=== PATIENT | male | born 1960 | race Caucasian/White ===

== ENCOUNTER 2017-08-02 10:30 | Inpatient (IN) | payer MEDICAID ==
[2017-08-02] MEDS: SOD CHLORIDE 0.9% 1,000 ML IV ×2 (12:02)
[2017-08-02] MEDS: LORAZEPAM 2 MG INJ IV (12:02)
[2017-08-02 12:06] LABS: ADD MAN DIFF? NO
[2017-08-02 12:08] LABS: WHITE BLOOD COUNT 11.4 10^3/ul (4.8-10.8)
[2017-08-02 12:08] LABS: ABNORMAL IP MESSAGE 1; BASOPHIL # 0.1 10^3/ul (0.0-0.1); EOSINOPHILS # 0.3 10^3/ul (0.0-0.5); EOSINOPHILS % 2.7 % (0.0-7.0); HEMATOCRIT 30.4 % (42.0-52.0); HEMOGLOBIN 10.3 g/dl (14.0-18.0); LYMPHOCYTES # 1.5 10^3/ul (0.8-2.9); LYMPHOCYTES % 12.9 % (15.0-51.0); MEAN CORPUSCULAR HEMOGLOBIN 37.2 pg (29.0-33.0); MEAN CORPUSCULAR HGB CONC 33.9 g/dl (32.0-37.0); MEAN CORPUSCULAR VOLUME 109.7 fl (82.0-101.0); MEAN PLATELET VOLUME 9.6 fl (7.4-10.4); MONOCYTE # 1.2 10^3/ul (0.3-0.9); MONOCYTES % 10.5 % (0.0-11.0); NEUTROPHIL # 8.3 10^3/ul (1.6-7.5); NEUTROPHILS % 72.3 % (39.0-77.0); PLATELET COUNT 71 10^3/UL (140-415); POSITIVE DIFF @See below; RED BLOOD COUNT 2.77 10^6/ul (4.70-6.10)
[2017-08-02] MEDS: MAGNESIUM SULFATE 2 GM, MULTIVITAMINS 10 ML, THIAMINE 100 MG, FOLIC ACID 1 MG in SOD CH... IV (12:23)
[2017-08-02 12:26] LABS: ALANINE AMINOTRANSFERASE 27 IU/L (13-69); ALBUMIN 3.3 g/dl (3.3-4.9); ALBUMIN/GLOBULIN RATIO 0.53; ALKALINE PHOSPHATASE 191 IU/L (42-121); AMYLASE 80 U/L (11-123); ANION GAP 15 (8-16); ASPARTATE AMINO TRANSFERASE 111 IU/L (15-46); BILIRUBIN,INDIRECT 2.2 mg/dl (0-1.1); BILIRUBIN,TOTAL 2.3 mg/dl (0.2-1.3); BLOOD UREA NITROGEN 3 mg/dl (7-20); CALCIUM 8.4 mg/dl (8.4-10.2); CARBON DIOXIDE 24 mmol/L (21-31); CHLORIDE 112 mmol/L (97-110); CREATININE 0.85 mg/dl (0.61-1.24); GLUCOSE 139 mg/dl (70-220); LIPASE 263 U/L (23-300); POTASSIUM 3.2 mmol/L (3.5-5.1); SODIUM 148 mmol/L (135-144); TOTAL PROTEIN 9.5 g/dl (6.1-8.1)
[2017-08-02 12:29] LABS: PROTIME 23.2 Sec (11.9-14.9); PT RATIO 1.8
[2017-08-02 12:30] LABS: PARTIAL THROMBOPLASTIN TIME 45.8 Sec (25.0-35.0)
[2017-08-02 12:32] LABS: D-DIMER 2594.24 ng/ml (<460)
[2017-08-02 12:37] LABS: B-TYPE NATRIURETIC PEPTIDE 72 PG/ML (0-125)
[2017-08-02 12:38] LABS: ADD UMIC NO; TROPONIN-I < 0.010 ng/ml (0.000-0.120); UR ASCORBIC ACID NEGATIVE (NEGATIVE); UR BILIRUBIN (Dip) 1+ mg/dL (NEGATIVE); UR BLOOD (Dip) NEGATIVE (NEGATIVE); UR CLARITY CLEAR (CLEAR); UR COLOR AMBER (YELLOW); UR GLUCOSE (Dip) NEGATIVE (NEGATIVE); UR KETONES (Dip) NEGATIVE (NEGATIVE); UR LEUKOCYTE ESTERASE (Dip) NEGATIVE Leu/ul (NEGATIVE); UR NITRITE (Dip) NEGATIVE (NEGATIVE); UR SPECIFIC GRAVITY (Dip) 1.013 (1.003-1.030); UR TOTAL PROTEIN (Dip) NEGATIVE (NEGATIVE); UR UROBILINOGEN (Dip) 2+ mg/dL (NEGATIVE)
[2017-08-02 12:48] LABS: LACTIC ACID 3.2 mmol/L (0.5-2.0)
[2017-08-02] MEDS ORDERED: LACTATED RINGER S IV (13:00)
[2017-08-02] MEDS: CEFEPIME 2GM/50 ML (PMX) 50 ML IVPB (13:27)
[2017-08-02] MEDS: SODIUM CHLORIDE 0.9% 1L BAG IV* (13:28)
[2017-08-02 13:51] LABS: LACTIC ACID 1.6 mmol/L (0.5-2.0)
[2017-08-02] MEDS: IOHEXOL 300MG/ML 150 ML BTL (14:19)
[2017-08-02] MEDS: SOD CHLORIDE 0.9% 100 ML (14:19)
[2017-08-02] MEDS: ALBUTEROL 0.5% (NEB) 2.5 MG/0.5 ML AMP NEB (14:22)
[2017-08-02] MEDS: IPRATROPIUM (NEB) 0.5 MG/2.5 ML AMP NEB (14:22)
[2017-08-02] MEDS: VANCOMYCIN 1 GM (PMX) 250 ML IVPB (14:25)
[2017-08-02] MEDS: FUROSEMIDE 40 MG INJ IV (14:25)
[2017-08-02] MEDS ORDERED: ONDANSETRON 4 MG INJ IV (14:30)
[2017-08-02] MEDS ORDERED: ACETAMINOPHEN 325 MG TAB PO (14:30)
[2017-08-02] MEDS ORDERED: NACL 0.9% 3 ML SYG IV (16:30)
[2017-08-02] MEDS: FOLIC ACID 1 MG TAB PO (17:50)
[2017-08-02] MEDS: predniSONE 20 MG TAB PO (17:51)
[2017-08-02] MEDS: THIAMINE 100 MG TAB PO (17:54)
[2017-08-02] MEDS: ALBUTEROL/IPRATROPIUM (NEB) 3 ML AMP HHN (19:05)
[2017-08-03] MEDS: ALBUTEROL/IPRATROPIUM (NEB) 3 ML AMP HHN ×4 (01:19→20:19)
[2017-08-03] MEDS: THIAMINE 100 MG TAB PO ×2 (08:17→19:18)
[2017-08-03] MEDS: predniSONE 20 MG TAB PO (08:17)
[2017-08-03] MEDS: FOLIC ACID 1 MG TAB PO (08:18)
[2017-08-03] MEDS: ENOXAPARIN 30 MG/0.3 ML SYG SC (08:19)
[2017-08-03 08:54] LABS: ADD MAN DIFF? NO
[2017-08-03 09:02] LABS: WHITE BLOOD COUNT 9.5 10^3/ul (4.8-10.8)
[2017-08-03 09:02] LABS: ABNORMAL IP MESSAGE 1; BASOPHIL # 0.1 10^3/ul (0.0-0.1); BASOPHILS % 0.5 % (0.0-2.0); HEMATOCRIT 28.8 % (42.0-52.0); HEMOGLOBIN 9.7 g/dl (14.0-18.0); LYMPHOCYTES # 0.7 10^3/ul (0.8-2.9); LYMPHOCYTES % 7.7 % (15.0-51.0); MEAN CORPUSCULAR HEMOGLOBIN 37.2 pg (29.0-33.0); MEAN CORPUSCULAR HGB CONC 33.7 g/dl (32.0-37.0); MEAN CORPUSCULAR VOLUME 110.3 fl (82.0-101.0); MONOCYTE # 0.8 10^3/ul (0.3-0.9); MONOCYTES % 8.1 % (0.0-11.0); NEUTROPHIL # 7.9 10^3/ul (1.6-7.5); NEUTROPHILS % 83.1 % (39.0-77.0); PLATELET COUNT 56 10^3/UL (140-415); POSITIVE DIFF @See below; RED BLOOD COUNT 2.61 10^6/ul (4.70-6.10); RED CELL DISTRIBUTION WIDTH 14.9 % (11.5-14.5)
[2017-08-03 09:18] LABS: HEMOGLOBIN A1C 5.3 % (0-5.9)
[2017-08-03 09:21] LABS: ALANINE AMINOTRANSFERASE 22 IU/L (13-69); ALBUMIN 3.1 g/dl (3.3-4.9); ALBUMIN/GLOBULIN RATIO 0.52; ALKALINE PHOSPHATASE 219 IU/L (42-121); ANION GAP 14 (8-16); ASPARTATE AMINO TRANSFERASE 91 IU/L (15-46); BILIRUBIN,INDIRECT 2.3 mg/dl (0-1.1); BILIRUBIN,TOTAL 2.3 mg/dl (0.2-1.3); BLOOD UREA NITROGEN 4 mg/dl (7-20); CALCIUM 8.5 mg/dl (8.4-10.2); CARBON DIOXIDE 23 mmol/L (21-31); CHLORIDE 109 mmol/L (97-110); CREATININE 0.64 mg/dl (0.61-1.24); GLUCOSE 131 mg/dl (70-220); POTASSIUM 3.6 mmol/L (3.5-5.1); SODIUM 142 mmol/L (135-144)
[2017-08-03 09:54] LABS: ADD MAN DIFF? NO
[2017-08-03 09:55] LABS: ABNORMAL IP MESSAGE 1; BASOPHIL # 0.1 10^3/ul (0.0-0.1); BASOPHILS % 0.5 % (0.0-2.0); HEMOGLOBIN 9.7 g/dl (14.0-18.0); LYMPHOCYTES # 0.5 10^3/ul (0.8-2.9); LYMPHOCYTES % 5.1 % (15.0-51.0); MEAN CORPUSCULAR HEMOGLOBIN 36.9 pg (29.0-33.0); MEAN CORPUSCULAR HGB CONC 33.4 g/dl (32.0-37.0); MEAN CORPUSCULAR VOLUME 110.3 fl (82.0-101.0); MEAN PLATELET VOLUME 9.5 fl (7.4-10.4); MONOCYTE # 0.8 10^3/ul (0.3-0.9); MONOCYTES % 7.8 % (0.0-11.0); NEUTROPHIL # 8.3 10^3/ul (1.6-7.5); PLATELET COUNT 59 10^3/UL (140-415); POSITIVE DIFF @See below; RED BLOOD COUNT 2.63 10^6/ul (4.70-6.10); RED CELL DISTRIBUTION WIDTH 14.8 % (11.5-14.5)
[2017-08-03 09:55] LABS: WHITE BLOOD COUNT 9.6 10^3/ul (4.8-10.8)
[2017-08-03 10:15] LABS: ALANINE AMINOTRANSFERASE 23 IU/L (13-69); ALBUMIN/GLOBULIN RATIO 0.51; ALKALINE PHOSPHATASE 216 IU/L (42-121); ANION GAP 13 (8-16); ASPARTATE AMINO TRANSFERASE 91 IU/L (15-46); BILIRUBIN,INDIRECT 2.5 mg/dl (0-1.1); BILIRUBIN,TOTAL 2.5 mg/dl (0.2-1.3); BLOOD UREA NITROGEN 4 mg/dl (7-20); CALCIUM 8.6 mg/dl (8.4-10.2); CARBON DIOXIDE 24 mmol/L (21-31); CHLORIDE 109 mmol/L (97-110); CREATININE 0.63 mg/dl (0.61-1.24); GLUCOSE 134 mg/dl (70-220); POTASSIUM 3.7 mmol/L (3.5-5.1); SODIUM 142 mmol/L (135-144); TOTAL PROTEIN 8.8 g/dl (6.1-8.1)
[2017-08-03 10:16] LABS: INR 1.93; PROTIME 22.5 Sec (11.9-14.9); PT RATIO 1.8
[2017-08-03] MEDS ORDERED: CHLORDIAZEPOXIDE 25 MG CAP PO (15:00)
[2017-08-04] MEDS: ALBUTEROL/IPRATROPIUM (NEB) 3 ML AMP HHN ×2 (01:39→07:27)
[2017-08-04] MEDS: FOLIC ACID 1 MG TAB PO (08:43)
[2017-08-04] MEDS: predniSONE 20 MG TAB PO (08:43)
[2017-08-04] MEDS: THIAMINE 100 MG TAB PO (08:43)
[2017-08-04] MEDS: ENOXAPARIN 30 MG/0.3 ML SYG SC (08:44)
[2017-08-04 10:06] LABS: HEPATITIS B SURFACE ANTIGEN NEGATIVE (NEGATIVE)
[2017-08-04 10:22] LABS: HEPATITIS B SURFACE ANTIBODY POSITIVE (NEGATIVE)
[2017-08-04 10:23] LABS: HEPATITIS B CORE ANTIBODY NEGATIVE (NEGATIVE); HEPATITIS C VIRAL ANTIBODY NEGATIVE (NEGATIVE)
== END 2017-08-04 12:47 | disposition home or self-care (01) | DRG 433 ==
LOC: E/R 10:30 → MS4 14:26
DX: K70.30 Alcoholic cirrhosis of liver without ascites (principal); D68.9 Coagulation defect, unspecified; D69.6 Thrombocytopenia, unspecified; D53.9 Nutritional anemia, unspecified; R16.1 Splenomegaly, not elsewhere classified; F10.229 Alcohol dependence with intoxication, unspecified; F17.290 Nicotine dependence, other tobacco product, uncomplicated
CPT/HCPCS: 36415; 71045; 71275; 76705; 80053; 80307; 81003; 82150; 83036; 83605; 83690; 83880; 84484; 85025; 85378; 85610; 85730; 86704; 86706; 86708; 86803; 87040; 87086; 87340; 93005; 93306; 94640; 94644; 94664; 96365; 96366; 96368; 96375; 99291-25

== ENCOUNTER 2017-10-25 14:40 | Inpatient (IN) | payer MEDICAID ==
[2017-10-25 15:23] LABS: WHITE BLOOD COUNT 20.3 10^3/ul (4.8-10.8)
[2017-10-25 15:23] LABS: ABNORMAL IP MESSAGE 1; HEMATOCRIT 21.7 % (42.0-52.0); HEMOGLOBIN 7.4 g/dl (14.0-18.0); MEAN CORPUSCULAR HEMOGLOBIN 37.9 pg (29.0-33.0); MEAN CORPUSCULAR HGB CONC 34.1 g/dl (32.0-37.0); MEAN CORPUSCULAR VOLUME 111.3 fl (82.0-101.0); MEAN PLATELET VOLUME 10.6 fl (7.4-10.4); PLATELET COUNT 65 10^3/UL (140-415); POSITIVE DIFF @See below; RED BLOOD COUNT 1.95 10^6/ul (4.70-6.10); RED CELL DISTRIBUTION WIDTH 15.6 % (11.5-14.5)
[2017-10-25] MEDS: PANTOPRAZOLE IV 80 MG in SOD CHLORIDE 0.9% 100 ML IVPB (15:24)
[2017-10-25 15:29] LABS: ADD MAN DIFF? YES
[2017-10-25 15:34] LABS: OCCULT BLOOD STOOL NEGATIVE (NEGATIVE)
[2017-10-25 15:54] LABS: ALANINE AMINOTRANSFERASE 22 IU/L (13-69); ALBUMIN 2.7 g/dl (3.3-4.9); ALBUMIN/GLOBULIN RATIO 0.49; ALKALINE PHOSPHATASE 161 IU/L (42-121); ANION GAP 19 (8-16); ASPARTATE AMINO TRANSFERASE 163 IU/L (15-46); BILIRUBIN,INDIRECT 4.9 mg/dl (0-1.1); BLOOD UREA NITROGEN 3 mg/dl (7-20); CALCIUM 7.7 mg/dl (8.4-10.2); CARBON DIOXIDE 23 mmol/L (21-31); CHLORIDE 107 mmol/L (97-110); CREATININE 0.99 mg/dl (0.61-1.24); GLUCOSE 123 mg/dl (70-220); POTASSIUM 4.1 mmol/L (3.5-5.1); SODIUM 145 mmol/L (135-144); TOTAL PROTEIN 8.2 g/dl (6.1-8.1)
[2017-10-25 15:57] LABS: INR 2.86; PROTIME 30.8 Sec (11.9-14.9); PT RATIO 2.4
[2017-10-25 16:05] LABS: TROPONIN-I < 0.012 ng/ml (0.000-0.120)
[2017-10-25] MEDS ORDERED: ONDANSETRON 4 MG INJ IV (17:00)
[2017-10-25] MEDS: ALBUMIN HUMAN 25% 100 ML IV (17:04)
[2017-10-25] MEDS: OCTREOTIDE 50 MCG INJ SC (17:15)
[2017-10-25] MEDS: CEFEPIME 1GM/50 ML (PMX) 50 ML IVPB (17:15)
[2017-10-25 17:20] LABS: LACTIC ACID 3.6 mmol/L (0.5-2.0)
[2017-10-25] MEDS: metroNIDAZOLE 500 MG/NS (PMX) 100 ML IVPB (17:53)
[2017-10-25] MEDS: IOHEXOL 300MG/ML 150 ML BTL (18:02)
[2017-10-25] MEDS: SOD CHLORIDE 0.9% 100 ML (18:02)
[2017-10-25 19:29] LABS: HEMATOCRIT 18.9 % (42.0-52.0)
[2017-10-25 19:40] LABS: HEMOGLOBIN 6.3 g/dl (14.0-18.0)
[2017-10-25] MEDS: OCTREOTIDE 500 MCG in SOD CHLORIDE 0.9% 49 ML IV (19:48)
[2017-10-25] MEDS: PANTOPRAZOLE IV 80 MG in SOD CHLORIDE 0.9% 100 ML IV (19:48)
[2017-10-25 20:17] LABS: LACTIC ACID 3.5 mmol/L (0.5-2.0)
[2017-10-25 22:19] LABS: LACTIC ACID 3.5 mmol/L (0.5-2.0)
[2017-10-25 23:00] LABS: TYPE AND SCREEN 1
[2017-10-26 02:52] LABS: LACTIC ACID 4.6 mmol/L (0.5-2.0)
[2017-10-26] MEDS: CEFTRIAXONE 1 GM/50 ML (PMX) 50 ML IVPB ×2 (04:19→18:53)
[2017-10-26] MEDS: SOD CHLORIDE 0.9% 1,000 ML IV (04:54)
[2017-10-26] MEDS: SOD CHLORIDE 0.9% 250 ML IV (07:33)
[2017-10-26] MEDS ORDERED: metroNIDAZOLE (5 MG/ML) IV SYG IV* (08:30)
[2017-10-26] MEDS: Metronidazole 500 MG in NS 100 ML IVPB ×3 (09:43→21:27)
[2017-10-26 10:11] LABS: ADD MAN DIFF? NO
[2017-10-26 10:15] LABS: ABNORMAL IP MESSAGE 1; BASOPHIL # 0.1 10^3/ul (0.0-0.1); BASOPHILS % 0.4 % (0.0-2.0); EOSINOPHILS # 0.1 10^3/ul (0.0-0.5); EOSINOPHILS % 0.7 % (0.0-7.0); HEMATOCRIT 17.7 % (42.0-52.0); LYMPHOCYTES # 1.1 10^3/ul (0.8-2.9); LYMPHOCYTES % 8.1 % (15.0-51.0); MEAN CORPUSCULAR HEMOGLOBIN 35.6 pg (29.0-33.0); MEAN CORPUSCULAR HGB CONC 32.8 g/dl (32.0-37.0); MEAN CORPUSCULAR VOLUME 108.6 fl (82.0-101.0); MONOCYTE # 1.4 10^3/ul (0.3-0.9); MONOCYTES % 10.7 % (0.0-11.0); NEUTROPHIL # 10.7 10^3/ul (1.6-7.5); NEUTROPHILS % 79.4 % (39.0-77.0); PLATELET COUNT 52 10^3/UL (140-415); POSITIVE DIFF @See below; RED BLOOD COUNT 1.63 10^6/ul (4.70-6.10); RED CELL DISTRIBUTION WIDTH 22.8 % (11.5-14.5)
[2017-10-26 10:15] LABS: WHITE BLOOD COUNT 13.5 10^3/ul (4.8-10.8)
[2017-10-26] MEDS: ACETAMINOPHEN 325 MG TAB PO ×2 (10:17→10:55)
[2017-10-26 10:22] LABS: HEMOGLOBIN 5.8 g/dl (14.0-18.0)
[2017-10-26 10:37] LABS: INR 2.67; PROTIME 29.2 Sec (11.9-14.9); PT RATIO 2.3
[2017-10-26 10:37] LABS: LACTIC ACID 3.9 mmol/L (0.5-2.0)
[2017-10-26 10:38] LABS: PARTIAL THROMBOPLASTIN TIME 49.1 Sec (25.0-35.0)
[2017-10-26 10:46] LABS: ALANINE AMINOTRANSFERASE 26 IU/L (13-69); ALBUMIN 2.4 g/dl (3.3-4.9); ALBUMIN/GLOBULIN RATIO 0.52; ALKALINE PHOSPHATASE 110 IU/L (42-121); ANION GAP 14 (8-16); ASPARTATE AMINO TRANSFERASE 151 IU/L (15-46); BILIRUBIN,INDIRECT 5.8 mg/dl (0-1.1); BILIRUBIN,TOTAL 8.1 mg/dl (0.2-1.3); BLOOD UREA NITROGEN 4 mg/dl (7-20); CALCIUM 7.6 mg/dl (8.4-10.2); CARBON DIOXIDE 26 mmol/L (21-31); CHLORIDE 105 mmol/L (97-110); CREATININE 0.95 mg/dl (0.61-1.24); GLUCOSE 122 mg/dl (70-220); MAGNESIUM 1.7 mg/dl (1.7-2.5); PHOSPHORUS 5.8 mg/dl (2.5-4.9); POTASSIUM 4.6 mmol/L (3.5-5.1); SODIUM 140 mmol/L (135-144)
[2017-10-26] MEDS: PHYTONADIONE 10 MG/ML INJ IM (15:11)
[2017-10-26] MEDS: morphine 2 MG INJ IV (15:21)
[2017-10-26] MEDS ORDERED: OCTREOTIDE 1 MG in DEXTROSE 5% 95 ML IV (15:30)
[2017-10-26 16:19] LABS: ABNORMAL IP MESSAGE 1; HEMATOCRIT 19.7 % (42.0-52.0); MEAN CORPUSCULAR HEMOGLOBIN 34.6 pg (29.0-33.0); MEAN CORPUSCULAR VOLUME 104.8 fl (82.0-101.0); MEAN PLATELET VOLUME 10.8 fl (7.4-10.4); NUCLEATED RED BLOOD CELLS% 0.1 /100WBC (0.0-0.0); PLATELET COUNT 57 10^3/UL (140-415); POSITIVE DIFF @See below; RED BLOOD COUNT 1.88 10^6/ul (4.70-6.10); RED CELL DISTRIBUTION WIDTH 22.9 % (11.5-14.5)
[2017-10-26 16:19] LABS: WHITE BLOOD COUNT 15.5 10^3/ul (4.8-10.8)
[2017-10-26 16:28] LABS: ADD MAN DIFF? YES; HEMOGLOBIN 6.5 g/dl (14.0-18.0)
[2017-10-26 16:51] LABS: LACTIC ACID 5.1 mmol/L (0.5-2.0)
[2017-10-26] MEDS: OCTREOTIDE 1 MG in DEXTROSE 5% 95 ML IV (16:56)
[2017-10-26 17:02] LABS: ANISOCYTOSIS 2+ (0-0); BAND NEUTROPHILS #M 0.9 10^3/ul (0.0-0.6); BAND NEUTROPHILS % (M) 6 % (0-4); BASOPHIL #M 0.6 10^3/ul (0.0-0.0); BASOPHILS % (M) 4 % (0-2); EOSINOPHILS % (M) 1 % (0-7); LYMPHOCYTES #M 0.9 10^3/ul (0.8-2.9); LYMPHOCYTES % (M) 6 % (15-51); MONOCYTE #M 0.1 10^3/ul (0.3-0.9); MONOCYTES % (M) 1 % (0-11); PLATELET ESTIMATE DECREASED; POLYCHROMASIA 2+ (0-0); PROMYELOCYTES #M 0.1 10^3/ul (0-0); PROMYELOCYTES % (M) 1 % (0-0); SEG NEUT #M 12.7 10^3/ul (1.6-7.5); SEGMENTED NEUTROPHILS (M) % 81 % (39-77); SMUDGE%M 12 % (0-0)
[2017-10-26] MEDS: IOHEXOL 300MG/ML 150 ML BTL (18:15)
[2017-10-26] MEDS: SOD CHLORIDE 0.9% 100 ML (18:15)
[2017-10-26] MEDS: PANTOPRAZOLE 40 MG INJ IV (18:52)
[2017-10-26 20:44] LABS: HEMATOCRIT 19.9 % (42.0-52.0)
[2017-10-26 20:48] LABS: HEMOGLOBIN 6.4 g/dl (14.0-18.0)
[2017-10-26 21:09] LABS: LACTIC ACID 9.9 mmol/L (0.5-2.0)
[2017-10-26] MEDS: ONDANSETRON 4 MG INJ IV (21:27)
[2017-10-26] MEDS: CHLORDIAZEPOXIDE 25 MG CAP PO (21:27)
[2017-10-26] MEDS: LORAZEPAM 2 MG INJ IV (21:28)
[2017-10-26 22:56] LABS: AADO2 Arterial 91.3 mmHg (7.0-24.0); Allen Test ACCEPTAB; Arterial Base Excess -4.8 mmol/L (-3.0-3); Arterial Blood Gas Oxygen Sat 94.7 mmHG (95.0-98.0); Arterial COHb 1.5 % (0.0-3.0); Arterial Fraction of Oxyhgb 92.9 % (93.0-99.0); Arterial HCO3 19.7 mmol/L (22.0-26.0); Arterial MetHb 0.4 % (0.0-1.5); Arterial Total Hemglobin 6.2 g/dl (12.0-18.0); Arterial pCO2 33.4 mmhg (35-45); MODE NASAL CANNULA; Site Right Radial
[2017-10-27 03:05] LABS: LACTIC ACID 5.7 mmol/L (0.5-2.0)
[2017-10-27 03:20] LABS: IMMEDIATE SPIN CROSSMATCH 1
[2017-10-27] MEDS: PANTOPRAZOLE 40 MG INJ IV ×2 (06:28→19:26)
[2017-10-27] MEDS: PHYTONADIONE 10 MG/ML INJ IM (06:29)
[2017-10-27] MEDS: Metronidazole 500 MG in NS 100 ML IVPB ×3 (06:29→21:49)
[2017-10-27] MEDS: CHLORDIAZEPOXIDE 25 MG CAP PO ×3 (09:00→20:51)
[2017-10-27] MEDS: SOD CHLORIDE 0.9% 1,000 ML IV ×3 (09:06→23:24)
[2017-10-27] MEDS: METHYLPREDNISOLONE 40 MG INJ IV (10:47)
[2017-10-27] MEDS: SOD CHLORIDE 0.9% 250 ML IV* ×2 (11:20→16:00)
[2017-10-27 11:41] LABS: ADD MAN DIFF? NO
[2017-10-27 11:42] LABS: ABNORMAL IP MESSAGE 1; BASOPHIL # 0.1 10^3/ul (0.0-0.1); BASOPHILS % 0.4 % (0.0-2.0); EOSINOPHILS # 0.1 10^3/ul (0.0-0.5); EOSINOPHILS % 0.6 % (0.0-7.0); HEMATOCRIT 19.7 % (42.0-52.0); LYMPHOCYTES # 0.9 10^3/ul (0.8-2.9); LYMPHOCYTES % 6.6 % (15.0-51.0); MEAN CORPUSCULAR HEMOGLOBIN 33.3 pg (29.0-33.0); MEAN CORPUSCULAR HGB CONC 33.5 g/dl (32.0-37.0); MEAN CORPUSCULAR VOLUME 99.5 fl (82.0-101.0); MEAN PLATELET VOLUME 11.2 fl (7.4-10.4); MONOCYTE # 1.7 10^3/ul (0.3-0.9); MONOCYTES % 12.2 % (0.0-11.0); NEUTROPHILS % 79.3 % (39.0-77.0); NUCLEATED RED BLOOD CELLS% 0.3 /100WBC (0.0-0.0); PLATELET COUNT 48 10^3/UL (140-415); POSITIVE DIFF @See below; RED BLOOD COUNT 1.98 10^6/ul (4.70-6.10); RED CELL DISTRIBUTION WIDTH 23.4 % (11.5-14.5)
[2017-10-27 11:42] LABS: WHITE BLOOD COUNT 13.9 10^3/ul (4.8-10.8)
[2017-10-27 11:46] LABS: HEMOGLOBIN 6.6 g/dl (14.0-18.0)
[2017-10-27 12:04] LABS: INR 2.37; PROTIME 26.5 Sec (11.9-14.9); PT RATIO 2.1
[2017-10-27 12:11] LABS: ALANINE AMINOTRANSFERASE 26 IU/L (13-69); ALBUMIN 2.4 g/dl (3.3-4.9); ALBUMIN/GLOBULIN RATIO 0.55; ALKALINE PHOSPHATASE 91 IU/L (42-121); ANION GAP 11 (8-16); ASPARTATE AMINO TRANSFERASE 99 IU/L (15-46); BILIRUBIN,INDIRECT 7.3 mg/dl (0-1.1); BILIRUBIN,TOTAL 9.2 mg/dl (0.2-1.3); CARBON DIOXIDE 28 mmol/L (21-31); CHLORIDE 103 mmol/L (97-110); GLUCOSE 121 mg/dl (70-220); MAGNESIUM 1.8 mg/dl (1.7-2.5); PHOSPHORUS 4.2 mg/dl (2.5-4.9); POTASSIUM 4.3 mmol/L (3.5-5.1); SODIUM 138 mmol/L (135-144); TOTAL PROTEIN 6.7 g/dl (6.1-8.1)
[2017-10-27 12:49] LABS: BLOOD UREA NITROGEN 8 mg/dl (7-20); CALCIUM 8.1 mg/dl (8.4-10.2); CREATININE 0.99 mg/dl (0.61-1.24)
[2017-10-27] MEDS: OCTREOTIDE 1 MG in DEXTROSE 5% 95 ML IV (12:53)
[2017-10-27 13:45] LABS: IMMEDIATE SPIN CROSSMATCH 1 8
[2017-10-27] MEDS: PROPOFOL 20 ML (19:00)
[2017-10-27] MEDS: CEFTRIAXONE 1 GM/50 ML (PMX) 50 ML IVPB (19:26)
[2017-10-27] MEDS: LIDOCAINE 2% (SDV) 5 ML INJ (21:00)
[2017-10-28] MEDS: Metronidazole 500 MG in NS 100 ML IVPB (05:49)
[2017-10-28] MEDS: PANTOPRAZOLE 40 MG INJ IV ×2 (05:49→17:43)
[2017-10-28] MEDS: morphine 2 MG INJ IV (06:27)
[2017-10-28 09:09] LABS: ADD MAN DIFF? NO
[2017-10-28] MEDS: METHYLPREDNISOLONE 40 MG INJ IV (09:11)
[2017-10-28] MEDS: OCTREOTIDE 1 MG in DEXTROSE 5% 95 ML IV (09:11)
[2017-10-28] MEDS: CHLORDIAZEPOXIDE 25 MG CAP PO ×4 (09:13→20:41)
[2017-10-28 09:14] LABS: ABNORMAL IP MESSAGE 1; BASOPHILS % 0.1 % (0.0-2.0); EOSINOPHILS % 0.1 % (0.0-7.0); HEMATOCRIT 19.2 % (42.0-52.0); LYMPHOCYTES # 0.7 10^3/ul (0.8-2.9); LYMPHOCYTES % 5.4 % (15.0-51.0); MEAN CORPUSCULAR HEMOGLOBIN 32.5 pg (29.0-33.0); MEAN CORPUSCULAR HGB CONC 33.9 g/dl (32.0-37.0); MEAN PLATELET VOLUME 11.1 fl (7.4-10.4); MONOCYTE # 1.3 10^3/ul (0.3-0.9); MONOCYTES % 9.9 % (0.0-11.0); NEUTROPHIL # 11.2 10^3/ul (1.6-7.5); NEUTROPHILS % 83.4 % (39.0-77.0); NUCLEATED RED BLOOD CELLS # 0.1 10^3/ul (0.0-0.0); NUCLEATED RED BLOOD CELLS% 0.4 /100WBC (0.0-0.0); POSITIVE DIFF @See below; RED CELL DISTRIBUTION WIDTH 22.2 % (11.5-14.5)
[2017-10-28 09:14] LABS: WHITE BLOOD COUNT 13.5 10^3/ul (4.8-10.8)
[2017-10-28 09:21] LABS: PLATELET COUNT 40 10^3/UL (140-415)
[2017-10-28 09:27] LABS: HEMOGLOBIN 6.5 g/dl (14.0-18.0)
[2017-10-28 09:46] LABS: ALANINE AMINOTRANSFERASE 19 IU/L (13-69); ALBUMIN 2.2 g/dl (3.3-4.9); ALBUMIN/GLOBULIN RATIO 0.57; ALKALINE PHOSPHATASE 79 IU/L (42-121); ANION GAP 7 (8-16); ASPARTATE AMINO TRANSFERASE 81 IU/L (15-46); BILIRUBIN,INDIRECT 6.8 mg/dl (0-1.1); BILIRUBIN,TOTAL 9.8 mg/dl (0.2-1.3); BLOOD UREA NITROGEN 10 mg/dl (7-20); CALCIUM 7.9 mg/dl (8.4-10.2); CARBON DIOXIDE 28 mmol/L (21-31); CHLORIDE 105 mmol/L (97-110); CREATININE 0.91 mg/dl (0.61-1.24); GLUCOSE 113 mg/dl (70-220); MAGNESIUM 1.7 mg/dl (1.7-2.5); PHOSPHORUS 3.5 mg/dl (2.5-4.9); POTASSIUM 4.3 mmol/L (3.5-5.1); SODIUM 136 mmol/L (135-144)
[2017-10-28] MEDS: IODIXANOL LOCM 100 ML BTL (18:52)
[2017-10-28] MEDS: SOD CHLORIDE 0.9% 100 ML (18:52)
[2017-10-28 19:11] LABS: ADD MAN DIFF? NO
[2017-10-28 19:13] LABS: WHITE BLOOD COUNT 13.7 10^3/ul (4.8-10.8)
[2017-10-28 19:13] LABS: ABNORMAL IP MESSAGE 1; BASOPHILS % 0.2 % (0.0-2.0); HEMATOCRIT 23.7 % (42.0-52.0); LYMPHOCYTES # 0.6 10^3/ul (0.8-2.9); LYMPHOCYTES % 4.7 % (15.0-51.0); MEAN CORPUSCULAR HEMOGLOBIN 31.9 pg (29.0-33.0); MEAN CORPUSCULAR HGB CONC 33.8 g/dl (32.0-37.0); MEAN CORPUSCULAR VOLUME 94.4 fl (82.0-101.0); MEAN PLATELET VOLUME 10.9 fl (7.4-10.4); MONOCYTE # 1.1 10^3/ul (0.3-0.9); MONOCYTES % 7.7 % (0.0-11.0); NEUTROPHIL # 11.7 10^3/ul (1.6-7.5); NEUTROPHILS % 85.5 % (39.0-77.0); NUCLEATED RED BLOOD CELLS # 0.1 10^3/ul (0.0-0.0); NUCLEATED RED BLOOD CELLS% 0.7 /100WBC (0.0-0.0); PLATELET COUNT 43 10^3/UL (140-415); POSITIVE DIFF @See below; RED BLOOD COUNT 2.51 10^6/ul (4.70-6.10); RED CELL DISTRIBUTION WIDTH 20.5 % (11.5-14.5)
[2017-10-28] MEDS: CEFTRIAXONE 1 GM/50 ML (PMX) 50 ML IVPB (19:34)
[2017-10-28 21:51] LABS: IMMEDIATE SPIN CROSSMATCH 1 6
[2017-10-29] MEDS: PANTOPRAZOLE 40 MG INJ IV ×2 (05:20→18:20)
[2017-10-29 05:40] LABS: ADD MAN DIFF? NO
[2017-10-29 05:42] LABS: ABNORMAL IP MESSAGE 1; BASOPHILS % 0.1 % (0.0-2.0); HEMATOCRIT 18.8 % (42.0-52.0); LYMPHOCYTES # 0.9 10^3/ul (0.8-2.9); LYMPHOCYTES % 6.2 % (15.0-51.0); MEAN CORPUSCULAR HEMOGLOBIN 32.2 pg (29.0-33.0); MEAN CORPUSCULAR VOLUME 94.5 fl (82.0-101.0); MEAN PLATELET VOLUME 11.6 fl (7.4-10.4); MONOCYTE # 1.4 10^3/ul (0.3-0.9); NEUTROPHIL # 11.6 10^3/ul (1.6-7.5); NEUTROPHILS % 81.9 % (39.0-77.0); NUCLEATED RED BLOOD CELLS # 0.1 10^3/ul (0.0-0.0); PLATELET COUNT 44 10^3/UL (140-415); POSITIVE DIFF @See below; RED BLOOD COUNT 1.99 10^6/ul (4.70-6.10); RED CELL DISTRIBUTION WIDTH 21.6 % (11.5-14.5)
[2017-10-29 05:42] LABS: WHITE BLOOD COUNT 14.1 10^3/ul (4.8-10.8)
[2017-10-29 05:48] LABS: HEMOGLOBIN 6.4 g/dl (14.0-18.0)
[2017-10-29 06:24] LABS: ANION GAP 10 (8-16)
[2017-10-29 06:26] LABS: BLOOD UREA NITROGEN 12 mg/dl (7-20); CALCIUM 7.9 mg/dl (8.4-10.2); CARBON DIOXIDE 28 mmol/L (21-31); CHLORIDE 101 mmol/L (97-110); CREATININE 0.81 mg/dl (0.61-1.24); GLUCOSE 122 mg/dl (70-220); MAGNESIUM 1.8 mg/dl (1.7-2.5); PHOSPHORUS 3.1 mg/dl (2.5-4.9); POTASSIUM 4.1 mmol/L (3.5-5.1); SODIUM 135 mmol/L (135-144)
[2017-10-29] MEDS: METHYLPREDNISOLONE 40 MG INJ IV (08:26)
[2017-10-29] MEDS: CHLORDIAZEPOXIDE 25 MG CAP PO ×2 (08:26→14:23)
[2017-10-29 09:51] LABS: INR 2.46; PROTIME 27.3 Sec (11.9-14.9); PT RATIO 2.1
[2017-10-29 09:52] LABS: PARTIAL THROMBOPLASTIN TIME 36.5 Sec (25.0-35.0)
[2017-10-29] MEDS: SOD CHLORIDE 0.9% 250 ML IV* (11:28)
[2017-10-29] MEDS: SOD CHLORIDE 0.9% 100 ML (17:06)
[2017-10-29] MEDS: IOHEXOL 100 ML (17:06)
[2017-10-29] MEDS: CEFTRIAXONE 1 GM/50 ML (PMX) 50 ML IVPB (18:21)
[2017-10-29] MEDS: ALBUMIN HUMAN 25% 100 ML IV (19:02)
[2017-10-29 22:56] LABS: TYPE AND SCREEN 1
[2017-10-30] MEDS: PANTOPRAZOLE 40 MG INJ IV ×2 (05:51→17:20)
[2017-10-30 06:14] LABS: ADD MAN DIFF? NO
[2017-10-30 06:24] LABS: ABNORMAL IP MESSAGE 1; BASOPHILS % 0.1 % (0.0-2.0); EOSINOPHILS % 0.1 % (0.0-7.0); HEMATOCRIT 18.7 % (42.0-52.0); LYMPHOCYTES % 5.9 % (15.0-51.0); MEAN CORPUSCULAR HEMOGLOBIN 33.2 pg (29.0-33.0); MEAN CORPUSCULAR HGB CONC 34.2 g/dl (32.0-37.0); MEAN CORPUSCULAR VOLUME 96.9 fl (82.0-101.0); MEAN PLATELET VOLUME 10.2 fl (7.4-10.4); MONOCYTE # 1.6 10^3/ul (0.3-0.9); MONOCYTES % 9.4 % (0.0-11.0); NEUTROPHIL # 13.8 10^3/ul (1.6-7.5); NEUTROPHILS % 81.9 % (39.0-77.0); NUCLEATED RED BLOOD CELLS # 0.2 10^3/ul (0.0-0.0); NUCLEATED RED BLOOD CELLS% 1.4 /100WBC (0.0-0.0); PLATELET COUNT 71 10^3/UL (140-415); POSITIVE DIFF @See below; RED BLOOD COUNT 1.93 10^6/ul (4.70-6.10); RED CELL DISTRIBUTION WIDTH 20.4 % (11.5-14.5)
[2017-10-30 06:24] LABS: WHITE BLOOD COUNT 16.8 10^3/ul (4.8-10.8)
[2017-10-30 06:38] LABS: INR 2.58; PROTIME 28.4 Sec (11.9-14.9); PT RATIO 2.2
[2017-10-30 06:39] LABS: PARTIAL THROMBOPLASTIN TIME 39.8 Sec (25.0-35.0)
[2017-10-30 06:44] LABS: PHOSPHORUS 2.7 mg/dl (2.5-4.9)
[2017-10-30 06:44] LABS: MAGNESIUM 1.8 mg/dl (1.7-2.5)
[2017-10-30 06:59] LABS: ALBUMIN/GLOBULIN RATIO 0.68; ANION GAP 8 (8-16); BILIRUBIN,TOTAL 9.4 mg/dl (0.2-1.3)
[2017-10-30 07:05] LABS: ALANINE AMINOTRANSFERASE 26 IU/L (13-69); ALBUMIN 2.4 g/dl (3.3-4.9); ALKALINE PHOSPHATASE 85 IU/L (42-121); ASPARTATE AMINO TRANSFERASE 80 IU/L (15-46); BILIRUBIN,INDIRECT 6.8 mg/dl (0-1.1); BLOOD UREA NITROGEN 16 mg/dl (7-20); CALCIUM 8.2 mg/dl (8.4-10.2); CARBON DIOXIDE 29 mmol/L (21-31); CHLORIDE 104 mmol/L (97-110); CREATININE 0.85 mg/dl (0.61-1.24); GLUCOSE 128 mg/dl (70-220); SODIUM 137 mmol/L (135-144); TOTAL PROTEIN 5.9 g/dl (6.1-8.1)
[2017-10-30 07:15] LABS: HEMOGLOBIN 6.4 g/dl (14.0-18.0)
[2017-10-30] MEDS: METHYLPREDNISOLONE 40 MG INJ IV (09:15)
[2017-10-30 10:04] LABS: IMMEDIATE SPIN CROSSMATCH 1
[2017-10-30] MEDS: SOD CHLORIDE 0.9% 250 ML IV* (10:15)
[2017-10-30] MEDS: LACTULOSE 30ML CUP PO ×2 (14:11→17:20)
[2017-10-30 15:38] LABS: ADD MAN DIFF? NO
[2017-10-30 15:42] LABS: ABNORMAL IP MESSAGE 1; BASOPHILS % 0.1 % (0.0-2.0); EOSINOPHILS % 0.1 % (0.0-7.0); HEMOGLOBIN 7.3 g/dl (14.0-18.0); LYMPHOCYTES # 0.9 10^3/ul (0.8-2.9); LYMPHOCYTES % 5.4 % (15.0-51.0); MEAN CORPUSCULAR HEMOGLOBIN 32.4 pg (29.0-33.0); MEAN CORPUSCULAR HGB CONC 33.2 g/dl (32.0-37.0); MEAN CORPUSCULAR VOLUME 97.8 fl (82.0-101.0); MEAN PLATELET VOLUME 9.9 fl (7.4-10.4); MONOCYTE # 1.3 10^3/ul (0.3-0.9); MONOCYTES % 8.1 % (0.0-11.0); NEUTROPHIL # 13.7 10^3/ul (1.6-7.5); NEUTROPHILS % 83.4 % (39.0-77.0); NUCLEATED RED BLOOD CELLS # 0.2 10^3/ul (0.0-0.0); NUCLEATED RED BLOOD CELLS% 1.2 /100WBC (0.0-0.0); PLATELET COUNT 71 10^3/UL (140-415); POSITIVE DIFF @See below; RED BLOOD COUNT 2.25 10^6/ul (4.70-6.10); RED CELL DISTRIBUTION WIDTH 20.3 % (11.5-14.5)
[2017-10-30 15:42] LABS: WHITE BLOOD COUNT 16.4 10^3/ul (4.8-10.8)
[2017-10-30] MEDS: PHYTONADIONE 10 MG/ML INJ SC (18:37)
[2017-10-30] MEDS: CEFTRIAXONE 1 GM/50 ML (PMX) 50 ML IVPB (18:37)
[2017-10-31] MEDS: LACTULOSE 30ML CUP PO ×5 (00:09→23:24)
[2017-10-31] MEDS: PANTOPRAZOLE 40 MG INJ IV ×2 (05:14→18:20)
[2017-10-31 05:29] LABS: WHITE BLOOD COUNT 19.4 10^3/ul (4.8-10.8)
[2017-10-31 05:29] LABS: ABNORMAL IP MESSAGE 1; ADD MAN DIFF? NO; BASOPHILS % 0.2 % (0.0-2.0); EOSINOPHILS % 0.2 % (0.0-7.0); HEMATOCRIT 19.8 % (42.0-52.0); LYMPHOCYTES % 5.2 % (15.0-51.0); MEAN CORPUSCULAR HGB CONC 33.3 g/dl (32.0-37.0); MEAN PLATELET VOLUME 10.2 fl (7.4-10.4); MONOCYTE # 2.4 10^3/ul (0.3-0.9); MONOCYTES % 12.4 % (0.0-11.0); NEUTROPHIL # 15.4 10^3/ul (1.6-7.5); NEUTROPHILS % 79.3 % (39.0-77.0); NUCLEATED RED BLOOD CELLS # 0.2 10^3/ul (0.0-0.0); NUCLEATED RED BLOOD CELLS% 1.2 /100WBC (0.0-0.0); PLATELET COUNT 71 10^3/UL (140-415); POSITIVE DIFF @See below; RED CELL DISTRIBUTION WIDTH 21.6 % (11.5-14.5)
[2017-10-31 05:46] LABS: HEMOGLOBIN 6.6 g/dl (14.0-18.0)
[2017-10-31 06:04] LABS: PHOSPHORUS 2.9 mg/dl (2.5-4.9)
[2017-10-31 06:04] LABS: MAGNESIUM 1.9 mg/dl (1.7-2.5)
[2017-10-31 06:10] LABS: ALANINE AMINOTRANSFERASE 25 IU/L (13-69); ALBUMIN 2.5 g/dl (3.3-4.9); ALBUMIN/GLOBULIN RATIO 0.64; ALKALINE PHOSPHATASE 100 IU/L (42-121); ANION GAP 9 (8-16); ASPARTATE AMINO TRANSFERASE 93 IU/L (15-46); BILIRUBIN,INDIRECT 7.4 mg/dl (0-1.1); BILIRUBIN,TOTAL 12.1 mg/dl (0.2-1.3); BLOOD UREA NITROGEN 19 mg/dl (7-20); CALCIUM 8.4 mg/dl (8.4-10.2); CARBON DIOXIDE 28 mmol/L (21-31); CHLORIDE 105 mmol/L (97-110); CREATININE 0.79 mg/dl (0.61-1.24); GLUCOSE 120 mg/dl (70-220); POTASSIUM 3.6 mmol/L (3.5-5.1); SODIUM 138 mmol/L (135-144); TOTAL PROTEIN 6.4 g/dl (6.1-8.1)
[2017-10-31] MEDS: METHYLPREDNISOLONE 40 MG INJ IV (08:53)
[2017-10-31 13:10] LABS: ADD MAN DIFF? NO
[2017-10-31 13:11] LABS: WHITE BLOOD COUNT 18.1 10^3/ul (4.8-10.8)
[2017-10-31 13:11] LABS: ABNORMAL IP MESSAGE 1; BASOPHILS % 0.2 % (0.0-2.0); EOSINOPHILS % 0.2 % (0.0-7.0); HEMATOCRIT 21.9 % (42.0-52.0); HEMOGLOBIN 7.3 g/dl (14.0-18.0); LYMPHOCYTES # 0.9 10^3/ul (0.8-2.9); LYMPHOCYTES % 4.9 % (15.0-51.0); MEAN CORPUSCULAR HEMOGLOBIN 32.7 pg (29.0-33.0); MEAN CORPUSCULAR HGB CONC 33.3 g/dl (32.0-37.0); MEAN CORPUSCULAR VOLUME 98.2 fl (82.0-101.0); MEAN PLATELET VOLUME 10.5 fl (7.4-10.4); MONOCYTE # 1.7 10^3/ul (0.3-0.9); MONOCYTES % 9.2 % (0.0-11.0); NEUTROPHIL # 14.9 10^3/ul (1.6-7.5); NEUTROPHILS % 82.1 % (39.0-77.0); NUCLEATED RED BLOOD CELLS # 0.2 10^3/ul (0.0-0.0); NUCLEATED RED BLOOD CELLS% 0.9 /100WBC (0.0-0.0); PLATELET COUNT 77 10^3/UL (140-415); POSITIVE DIFF @See below; RED BLOOD COUNT 2.23 10^6/ul (4.70-6.10); RED CELL DISTRIBUTION WIDTH 22.5 % (11.5-14.5)
[2017-10-31] MEDS: CEFTRIAXONE 1 GM/50 ML (PMX) 50 ML IVPB (18:21)
[2017-11-01] MEDS: morphine LIQ (10 MG/5 ML) CUP PO ×2 (02:07→22:37)
[2017-11-01 05:47] LABS: WHITE BLOOD COUNT 16.6 10^3/ul (4.8-10.8)
[2017-11-01 05:47] LABS: ABNORMAL IP MESSAGE 1; ADD MAN DIFF? NO; BASOPHILS % 0.1 % (0.0-2.0); EOSINOPHILS % 0.2 % (0.0-7.0); HEMATOCRIT 20.4 % (42.0-52.0); LYMPHOCYTES % 5.9 % (15.0-51.0); MEAN CORPUSCULAR HEMOGLOBIN 32.5 pg (29.0-33.0); MEAN CORPUSCULAR HGB CONC 32.8 g/dl (32.0-37.0); MEAN PLATELET VOLUME 10.2 fl (7.4-10.4); MONOCYTES % 11.8 % (0.0-11.0); NEUTROPHIL # 13.1 10^3/ul (1.6-7.5); NEUTROPHILS % 79.1 % (39.0-77.0); NUCLEATED RED BLOOD CELLS # 0.1 10^3/ul (0.0-0.0); NUCLEATED RED BLOOD CELLS% 0.7 /100WBC (0.0-0.0); PLATELET COUNT 65 10^3/UL (140-415); POSITIVE DIFF @See below; RED BLOOD COUNT 2.06 10^6/ul (4.70-6.10); RED CELL DISTRIBUTION WIDTH 24.2 % (11.5-14.5)
[2017-11-01 06:07] LABS: HEMOGLOBIN 6.7 g/dl (14.0-18.0)
[2017-11-01 06:11] LABS: INR 2.83; PROTIME 30.6 Sec (11.9-14.9); PT RATIO 2.4
[2017-11-01 06:27] LABS: ALANINE AMINOTRANSFERASE 28 IU/L (13-69); ALBUMIN 2.4 g/dl (3.3-4.9); ALBUMIN/GLOBULIN RATIO 0.63; ALKALINE PHOSPHATASE 89 IU/L (42-121); ANION GAP 9 (8-16); ASPARTATE AMINO TRANSFERASE 77 IU/L (15-46); BILIRUBIN,INDIRECT 7.6 mg/dl (0-1.1); BLOOD UREA NITROGEN 18 mg/dl (7-20); CALCIUM 8.3 mg/dl (8.4-10.2); CARBON DIOXIDE 27 mmol/L (21-31); CHLORIDE 104 mmol/L (97-110); CREATININE 0.78 mg/dl (0.61-1.24); GLUCOSE 124 mg/dl (70-220); POTASSIUM 3.8 mmol/L (3.5-5.1); SODIUM 136 mmol/L (135-144); TOTAL PROTEIN 6.2 g/dl (6.1-8.1)
[2017-11-01] MEDS: LACTULOSE 30ML CUP PO ×3 (06:29→17:37)
[2017-11-01] MEDS: PANTOPRAZOLE 40 MG INJ IV ×2 (06:29→17:37)
[2017-11-01] MEDS: METHYLPREDNISOLONE 40 MG INJ IV (09:00)
[2017-11-01 12:24] LABS: HAAIG REFLEX REFLEX FILED
[2017-11-01 12:44] LABS: AMMONIA 48 umol/l (9-30)
[2017-11-01 13:18] LABS: HEPATITIS B SURFACE ANTIGEN NEGATIVE (NEGATIVE)
[2017-11-01 13:36] LABS: HEPATITIS B CORE ANTIBODY NEGATIVE (NEGATIVE); HEPATITIS C VIRAL ANTIBODY NEGATIVE (NEGATIVE)
[2017-11-01 13:52] LABS: ALPHA FETOPROTEIN 5.91 IU/L (0.00-7.21)
[2017-11-01 15:20] LABS: IMMEDIATE SPIN CROSSMATCH 1 1
[2017-11-01 17:51] LABS: IMMEDIATE SPIN CROSSMATCH 1
[2017-11-01] MEDS: SOD CHLORIDE 0.9% 250 ML IV* (17:53)
[2017-11-01] MEDS: CEFTRIAXONE 1 GM/50 ML (PMX) 50 ML IVPB (19:46)
[2017-11-02] MEDS: LACTULOSE 30ML CUP PO ×4 (00:13→17:38)
[2017-11-02 05:49] LABS: ADD MAN DIFF? NO
[2017-11-02 05:59] LABS: ABNORMAL IP MESSAGE 1; BASOPHILS % 0.1 % (0.0-2.0); EOSINOPHILS % 0.2 % (0.0-7.0); HEMATOCRIT 23.6 % (42.0-52.0); HEMOGLOBIN 7.7 g/dl (14.0-18.0); LYMPHOCYTES # 0.6 10^3/ul (0.8-2.9); MEAN CORPUSCULAR HEMOGLOBIN 31.6 pg (29.0-33.0); MEAN CORPUSCULAR HGB CONC 32.6 g/dl (32.0-37.0); MEAN CORPUSCULAR VOLUME 96.7 fl (82.0-101.0); MEAN PLATELET VOLUME 10.2 fl (7.4-10.4); MONOCYTE # 1.7 10^3/ul (0.3-0.9); MONOCYTES % 11.4 % (0.0-11.0); NEUTROPHIL # 12.5 10^3/ul (1.6-7.5); NEUTROPHILS % 82.2 % (39.0-77.0); NUCLEATED RED BLOOD CELLS # 0.1 10^3/ul (0.0-0.0); NUCLEATED RED BLOOD CELLS% 0.3 /100WBC (0.0-0.0); PLATELET COUNT 68 10^3/UL (140-415); POSITIVE DIFF @See below; RED BLOOD COUNT 2.44 10^6/ul (4.70-6.10); RED CELL DISTRIBUTION WIDTH 25.2 % (11.5-14.5)
[2017-11-02 05:59] LABS: WHITE BLOOD COUNT 15.2 10^3/ul (4.8-10.8)
[2017-11-02 06:16] LABS: ALANINE AMINOTRANSFERASE 41 IU/L (13-69); ALBUMIN 2.5 g/dl (3.3-4.9); ALKALINE PHOSPHATASE 97 IU/L (42-121); ASPARTATE AMINO TRANSFERASE 81 IU/L (15-46); BILIRUBIN,INDIRECT 8.7 mg/dl (0-1.1); BILIRUBIN,TOTAL 12.5 mg/dl (0.2-1.3)
[2017-11-02 06:18] LABS: INR 2.33; PROTIME 26.2 Sec (11.9-14.9); TOTAL PROTEIN 6.8 g/dl (6.1-8.1)
[2017-11-02] MEDS: PANTOPRAZOLE 40 MG INJ IV ×2 (06:38→17:38)
[2017-11-02] MEDS: METHYLPREDNISOLONE 40 MG INJ IV (08:04)
[2017-11-02] MEDS: MULTIVITAMINS 10 ML, THIAMINE 100 MG, FOLIC ACID 1 MG in SOD CHLORIDE 0.9% 1,000 ML IVPB (09:00)
[2017-11-02] MEDS: MULTIVITAMINS THERAPEUTIC TAB PO (12:52)
[2017-11-02] MEDS: THIAMINE 100 MG TAB PO (12:52)
[2017-11-02] MEDS: FOLIC ACID 1 MG TAB PO (12:52)
[2017-11-03] MEDS: LACTULOSE 30ML CUP PO ×4 (01:06→23:48)
[2017-11-03] MEDS: PANTOPRAZOLE 40 MG INJ IV ×2 (05:33→18:01)
[2017-11-03 05:54] LABS: ADD MAN DIFF? NO
[2017-11-03 06:03] LABS: WHITE BLOOD COUNT 12.7 10^3/ul (4.8-10.8)
[2017-11-03 06:03] LABS: ABNORMAL IP MESSAGE 1; BASOPHILS % 0.1 % (0.0-2.0); EOSINOPHILS # 0.1 10^3/ul (0.0-0.5); EOSINOPHILS % 0.6 % (0.0-7.0); HEMOGLOBIN 7.8 g/dl (14.0-18.0); LYMPHOCYTES # 0.7 10^3/ul (0.8-2.9); LYMPHOCYTES % 5.4 % (15.0-51.0); MEAN CORPUSCULAR HEMOGLOBIN 32.1 pg (29.0-33.0); MEAN CORPUSCULAR HGB CONC 32.5 g/dl (32.0-37.0); MEAN CORPUSCULAR VOLUME 98.8 fl (82.0-101.0); MEAN PLATELET VOLUME 10.5 fl (7.4-10.4); MONOCYTE # 1.6 10^3/ul (0.3-0.9); MONOCYTES % 12.7 % (0.0-11.0); NEUTROPHIL # 10.2 10^3/ul (1.6-7.5); NEUTROPHILS % 79.9 % (39.0-77.0); NUCLEATED RED BLOOD CELLS% 0.2 /100WBC (0.0-0.0); PLATELET COUNT 74 10^3/UL (140-415); POSITIVE DIFF @See below; RED BLOOD COUNT 2.43 10^6/ul (4.70-6.10); RED CELL DISTRIBUTION WIDTH 25.2 % (11.5-14.5)
[2017-11-03 06:26] LABS: ALANINE AMINOTRANSFERASE 34 IU/L (13-69); ALBUMIN 2.4 g/dl (3.3-4.9); ALKALINE PHOSPHATASE 103 IU/L (42-121); ASPARTATE AMINO TRANSFERASE 74 IU/L (15-46); BILIRUBIN,INDIRECT 8.5 mg/dl (0-1.1); BILIRUBIN,TOTAL 12.2 mg/dl (0.2-1.3); TOTAL PROTEIN 6.3 g/dl (6.1-8.1)
[2017-11-03 07:47] LABS: AMMONIA 61 umol/l (9-30)
[2017-11-03] MEDS: MULTIVITAMINS THERAPEUTIC TAB PO (08:54)
[2017-11-03] MEDS: METHYLPREDNISOLONE 40 MG INJ IV (08:54)
[2017-11-03] MEDS: THIAMINE 100 MG TAB PO (08:54)
[2017-11-03] MEDS: FOLIC ACID 1 MG TAB PO (08:54)
[2017-11-03] MEDS: LORAZEPAM 2 MG INJ IV (23:48)
[2017-11-04 06:16] LABS: ADD MAN DIFF? NO
[2017-11-04 06:23] LABS: WHITE BLOOD COUNT 14.9 10^3/ul (4.8-10.8)
[2017-11-04 06:23] LABS: ABNORMAL IP MESSAGE 1; BASOPHILS % 0.1 % (0.0-2.0); EOSINOPHILS # 0.1 10^3/ul (0.0-0.5); EOSINOPHILS % 0.5 % (0.0-7.0); LYMPHOCYTES # 0.7 10^3/ul (0.8-2.9); LYMPHOCYTES % 4.4 % (15.0-51.0); MEAN CORPUSCULAR HEMOGLOBIN 31.1 pg (29.0-33.0); MEAN CORPUSCULAR HGB CONC 30.8 g/dl (32.0-37.0); MEAN CORPUSCULAR VOLUME 101.2 fl (82.0-101.0); MEAN PLATELET VOLUME 9.6 fl (7.4-10.4); MONOCYTE # 1.9 10^3/ul (0.3-0.9); MONOCYTES % 12.6 % (0.0-11.0); NEUTROPHIL # 12.1 10^3/ul (1.6-7.5); NEUTROPHILS % 81.1 % (39.0-77.0); NUCLEATED RED BLOOD CELLS% 0.2 /100WBC (0.0-0.0); PLATELET COUNT 86 10^3/UL (140-415); POSITIVE DIFF @See below; RED BLOOD COUNT 2.57 10^6/ul (4.70-6.10); RED CELL DISTRIBUTION WIDTH 26.1 % (11.5-14.5)
[2017-11-04] MEDS: PANTOPRAZOLE 40 MG INJ IV ×2 (06:25→17:51)
[2017-11-04] MEDS: LACTULOSE 30ML CUP PO ×3 (06:25→17:52)
[2017-11-04 06:37] LABS: INR 2.51; PROTIME 27.8 Sec (11.9-14.9); PT RATIO 2.2
[2017-11-04 06:40] LABS: ALANINE AMINOTRANSFERASE 45 IU/L (13-69); ALBUMIN 2.6 g/dl (3.3-4.9); ALKALINE PHOSPHATASE 143 IU/L (42-121); ASPARTATE AMINO TRANSFERASE 86 IU/L (15-46); BILIRUBIN,INDIRECT 8.2 mg/dl (0-1.1); BILIRUBIN,TOTAL 13.9 mg/dl (0.2-1.3); TOTAL PROTEIN 6.7 g/dl (6.1-8.1)
[2017-11-04 06:40] LABS: AMMONIA 39 umol/l (9-30)
[2017-11-04] MEDS: THIAMINE 100 MG TAB PO (09:21)
[2017-11-04] MEDS: MULTIVITAMINS THERAPEUTIC TAB PO (09:21)
[2017-11-04] MEDS: FOLIC ACID 1 MG TAB PO (09:21)
[2017-11-04] MEDS: METHYLPREDNISOLONE 40 MG INJ IV (09:22)
[2017-11-05 05:49] LABS: ADD MAN DIFF? NO
[2017-11-05 05:52] LABS: ABNORMAL IP MESSAGE 1; BASOPHILS % 0.1 % (0.0-2.0); EOSINOPHILS # 0.1 10^3/ul (0.0-0.5); EOSINOPHILS % 0.4 % (0.0-7.0); HEMATOCRIT 26.1 % (42.0-52.0); HEMOGLOBIN 8.5 g/dl (14.0-18.0); LYMPHOCYTES # 0.6 10^3/ul (0.8-2.9); LYMPHOCYTES % 3.7 % (15.0-51.0); MEAN CORPUSCULAR HEMOGLOBIN 32.8 pg (29.0-33.0); MEAN CORPUSCULAR HGB CONC 32.6 g/dl (32.0-37.0); MEAN CORPUSCULAR VOLUME 100.8 fl (82.0-101.0); MEAN PLATELET VOLUME 9.5 fl (7.4-10.4); MONOCYTE # 1.9 10^3/ul (0.3-0.9); MONOCYTES % 11.9 % (0.0-11.0); NEUTROPHILS % 82.6 % (39.0-77.0); NUCLEATED RED BLOOD CELLS% 0.1 /100WBC (0.0-0.0); PLATELET COUNT 92 10^3/UL (140-415); POSITIVE DIFF @See below; RED BLOOD COUNT 2.59 10^6/ul (4.70-6.10); RED CELL DISTRIBUTION WIDTH 26.5 % (11.5-14.5)
[2017-11-05 05:52] LABS: WHITE BLOOD COUNT 15.8 10^3/ul (4.8-10.8)
[2017-11-05] MEDS: LACTULOSE 30ML CUP PO ×4 (06:00→17:55)
[2017-11-05] MEDS: PANTOPRAZOLE 40 MG INJ IV ×2 (06:03→17:55)
[2017-11-05 06:14] LABS: AMMONIA 49 umol/l (9-30)
[2017-11-05 06:45] LABS: ALANINE AMINOTRANSFERASE 50 IU/L (13-69); ALBUMIN 2.5 g/dl (3.3-4.9); ALBUMIN/GLOBULIN RATIO 0.52; ALKALINE PHOSPHATASE 133 IU/L (42-121); ANION GAP 11 (8-16); ASPARTATE AMINO TRANSFERASE 81 IU/L (15-46); BILIRUBIN,INDIRECT 8.8 mg/dl (0-1.1); BILIRUBIN,TOTAL 14.7 mg/dl (0.2-1.3); BLOOD UREA NITROGEN 12 mg/dl (7-20); CALCIUM 8.4 mg/dl (8.4-10.2); CARBON DIOXIDE 29 mmol/L (21-31); CHLORIDE 101 mmol/L (97-110); CREATININE 0.72 mg/dl (0.61-1.24); GLUCOSE 130 mg/dl (70-220); POTASSIUM 4.4 mmol/L (3.5-5.1); SODIUM 137 mmol/L (135-144); TOTAL PROTEIN 7.3 g/dl (6.1-8.1)
[2017-11-05] MEDS: MULTIVITAMINS THERAPEUTIC TAB PO (09:11)
[2017-11-05] MEDS: METHYLPREDNISOLONE 40 MG INJ IV (09:11)
[2017-11-05] MEDS: THIAMINE 100 MG TAB PO (09:11)
[2017-11-05] MEDS: FOLIC ACID 1 MG TAB PO (09:11)
[2017-11-05] MEDS: ONDANSETRON 4 MG INJ IV (09:12)
[2017-11-05] MEDS: FUROSEMIDE 20 MG TAB PO (09:12)
[2017-11-05] MEDS: PHYTONADIONE 10 MG/ML INJ SC (17:55)
[2017-11-05] MEDS: LORAZEPAM 2 MG INJ IV (23:43)
[2017-11-06 06:11] LABS: ADD MAN DIFF? NO
[2017-11-06] MEDS: PANTOPRAZOLE 40 MG INJ IV ×2 (06:11→17:30)
[2017-11-06] MEDS: LACTULOSE 30ML CUP PO ×4 (06:11→17:30)
[2017-11-06 06:21] LABS: WHITE BLOOD COUNT 17.9 10^3/ul (4.8-10.8)
[2017-11-06 06:21] LABS: ABNORMAL IP MESSAGE 1; BASOPHILS % 0.1 % (0.0-2.0); EOSINOPHILS # 0.1 10^3/ul (0.0-0.5); EOSINOPHILS % 0.4 % (0.0-7.0); HEMATOCRIT 26.6 % (42.0-52.0); HEMOGLOBIN 8.5 g/dl (14.0-18.0); LYMPHOCYTES # 0.7 10^3/ul (0.8-2.9); LYMPHOCYTES % 3.7 % (15.0-51.0); MEAN CORPUSCULAR HEMOGLOBIN 32.3 pg (29.0-33.0); MEAN CORPUSCULAR VOLUME 101.1 fl (82.0-101.0); MEAN PLATELET VOLUME 10.1 fl (7.4-10.4); MONOCYTES % 10.9 % (0.0-11.0); NEUTROPHILS % 83.6 % (39.0-77.0); NUCLEATED RED BLOOD CELLS% 0.1 /100WBC (0.0-0.0); PLATELET COUNT 107 10^3/UL (140-415); POSITIVE DIFF @See below; RED BLOOD COUNT 2.63 10^6/ul (4.70-6.10); RED CELL DISTRIBUTION WIDTH 26.6 % (11.5-14.5)
[2017-11-06 06:34] LABS: ANION GAP 10 (8-16); BLOOD UREA NITROGEN 15 mg/dl (7-20); CALCIUM 8.5 mg/dl (8.4-10.2); CARBON DIOXIDE 30 mmol/L (21-31); CHLORIDE 101 mmol/L (97-110); CREATININE 0.69 mg/dl (0.61-1.24); GLUCOSE 131 mg/dl (70-220); POTASSIUM 4.7 mmol/L (3.5-5.1); SODIUM 136 mmol/L (135-144)
[2017-11-06 06:38] LABS: INR 2.48; PROTIME 27.5 Sec (11.9-14.9); PT RATIO 2.1
[2017-11-06] MEDS: FOLIC ACID 1 MG TAB PO (08:33)
[2017-11-06] MEDS: MULTIVITAMINS THERAPEUTIC TAB PO (08:33)
[2017-11-06] MEDS: FUROSEMIDE 20 MG TAB PO (08:33)
[2017-11-06] MEDS: THIAMINE 100 MG TAB PO (08:33)
[2017-11-06] MEDS: METHYLPREDNISOLONE 40 MG INJ IV (08:33)
[2017-11-06] MEDS: RIFAXIMIN 550 MG TAB PO ×2 (15:41→22:08)
[2017-11-06] MEDS: morphine LIQ (10 MG/5 ML) CUP PO (17:47)
[2017-11-07] MEDS: LACTULOSE 30ML CUP PO ×4 (00:29→17:33)
[2017-11-07] MEDS: PANTOPRAZOLE 40 MG INJ IV ×2 (05:36→17:33)
[2017-11-07 06:03] LABS: ADD MAN DIFF? NO
[2017-11-07 06:19] LABS: WHITE BLOOD COUNT 19.2 10^3/ul (4.8-10.8)
[2017-11-07 06:19] LABS: ABNORMAL IP MESSAGE 1; BASOPHILS % 0.1 % (0.0-2.0); EOSINOPHILS # 0.1 10^3/ul (0.0-0.5); EOSINOPHILS % 0.7 % (0.0-7.0); HEMATOCRIT 26.8 % (42.0-52.0); HEMOGLOBIN 8.7 g/dl (14.0-18.0); LYMPHOCYTES # 0.7 10^3/ul (0.8-2.9); LYMPHOCYTES % 3.5 % (15.0-51.0); MEAN CORPUSCULAR HEMOGLOBIN 33.2 pg (29.0-33.0); MEAN CORPUSCULAR HGB CONC 32.5 g/dl (32.0-37.0); MEAN CORPUSCULAR VOLUME 102.3 fl (82.0-101.0); MEAN PLATELET VOLUME 9.5 fl (7.4-10.4); MONOCYTE # 2.1 10^3/ul (0.3-0.9); MONOCYTES % 10.7 % (0.0-11.0); NEUTROPHIL # 15.9 10^3/ul (1.6-7.5); NUCLEATED RED BLOOD CELLS% 0.2 /100WBC (0.0-0.0); PLATELET COUNT 107 10^3/UL (140-415); POSITIVE DIFF @See below; RED BLOOD COUNT 2.62 10^6/ul (4.70-6.10)
[2017-11-07 06:33] LABS: ANION GAP 9 (8-16); BLOOD UREA NITROGEN 15 mg/dl (7-20); CALCIUM 8.5 mg/dl (8.4-10.2); CARBON DIOXIDE 32 mmol/L (21-31); CHLORIDE 99 mmol/L (97-110); CREATININE 0.69 mg/dl (0.61-1.24); GLUCOSE 133 mg/dl (70-220); POTASSIUM 4.7 mmol/L (3.5-5.1); SODIUM 135 mmol/L (135-144)
[2017-11-07 06:39] LABS: AMMONIA 57 umol/l (9-30)
[2017-11-07] MEDS: FUROSEMIDE 20 MG TAB PO (08:04)
[2017-11-07] MEDS: MULTIVITAMINS THERAPEUTIC TAB PO (08:04)
[2017-11-07] MEDS: METHYLPREDNISOLONE 40 MG INJ IV (08:04)
[2017-11-07] MEDS: FOLIC ACID 1 MG TAB PO (08:04)
[2017-11-07] MEDS: RIFAXIMIN 550 MG TAB PO ×2 (08:04→20:36)
[2017-11-07] MEDS: THIAMINE 100 MG TAB PO (08:04)
[2017-11-07] MEDS: SPIRONOLACTONE 25 MG TAB PO ×2 (13:11→20:36)
[2017-11-08 05:42] LABS: ADD MAN DIFF? NO
[2017-11-08 05:48] LABS: WHITE BLOOD COUNT 20.5 10^3/ul (4.8-10.8)
[2017-11-08 05:48] LABS: ABNORMAL IP MESSAGE 1; BASOPHILS % 0.1 % (0.0-2.0); EOSINOPHILS # 0.1 10^3/ul (0.0-0.5); EOSINOPHILS % 0.7 % (0.0-7.0); HEMATOCRIT 28.3 % (42.0-52.0); HEMOGLOBIN 9.2 g/dl (14.0-18.0); LYMPHOCYTES # 0.7 10^3/ul (0.8-2.9); LYMPHOCYTES % 3.6 % (15.0-51.0); MEAN CORPUSCULAR HEMOGLOBIN 33.2 pg (29.0-33.0); MEAN CORPUSCULAR HGB CONC 32.5 g/dl (32.0-37.0); MEAN CORPUSCULAR VOLUME 102.2 fl (82.0-101.0); MEAN PLATELET VOLUME 9.8 fl (7.4-10.4); MONOCYTES % 9.7 % (0.0-11.0); NEUTROPHIL # 17.1 10^3/ul (1.6-7.5); NEUTROPHILS % 83.5 % (39.0-77.0); NUCLEATED RED BLOOD CELLS% 0.1 /100WBC (0.0-0.0); PLATELET COUNT 111 10^3/UL (140-415); POSITIVE DIFF @See below; RED BLOOD COUNT 2.77 10^6/ul (4.70-6.10); RED CELL DISTRIBUTION WIDTH 27.4 % (11.5-14.5)
[2017-11-08] MEDS: SPIRONOLACTONE 25 MG TAB PO ×2 (05:59→17:49)
[2017-11-08] MEDS: PANTOPRAZOLE 40 MG INJ IV ×2 (06:00→17:49)
[2017-11-08] MEDS: LACTULOSE 30ML CUP PO ×4 (06:00→17:49)
[2017-11-08 06:08] LABS: AMMONIA 37 umol/l (9-30)
[2017-11-08 06:11] LABS: ALANINE AMINOTRANSFERASE 74 IU/L (13-69); ALBUMIN 2.6 g/dl (3.3-4.9); ALKALINE PHOSPHATASE 166 IU/L (42-121); ASPARTATE AMINO TRANSFERASE 103 IU/L (15-46); BILIRUBIN,INDIRECT 8.4 mg/dl (0-1.1); BILIRUBIN,TOTAL 17.2 mg/dl (0.2-1.3); TOTAL PROTEIN 7.2 g/dl (6.1-8.1)
[2017-11-08 06:27] LABS: ANION GAP 11 (8-16); BLOOD UREA NITROGEN 14 mg/dl (7-20); CALCIUM 8.4 mg/dl (8.4-10.2); CARBON DIOXIDE 33 mmol/L (21-31); CHLORIDE 98 mmol/L (97-110); CREATININE 0.65 mg/dl (0.61-1.24); GLUCOSE 126 mg/dl (70-220); POTASSIUM 4.7 mmol/L (3.5-5.1); SODIUM 137 mmol/L (135-144)
[2017-11-08] MEDS: FOLIC ACID 1 MG TAB PO (08:18)
[2017-11-08] MEDS: MULTIVITAMINS THERAPEUTIC TAB PO (08:19)
[2017-11-08] MEDS: THIAMINE 100 MG TAB PO (08:19)
[2017-11-08] MEDS: RIFAXIMIN 550 MG TAB PO ×2 (08:19→21:02)
[2017-11-08] MEDS: METHYLPREDNISOLONE 40 MG INJ IV (08:19)
[2017-11-08] MEDS: FUROSEMIDE 20 MG TAB PO (08:19)
[2017-11-09 05:23] LABS: ADD MAN DIFF? NO
[2017-11-09 05:33] LABS: WHITE BLOOD COUNT 22.1 10^3/ul (4.8-10.8)
[2017-11-09 05:33] LABS: ABNORMAL IP MESSAGE 1; BASOPHILS % 0.2 % (0.0-2.0); EOSINOPHILS # 0.1 10^3/ul (0.0-0.5); EOSINOPHILS % 0.6 % (0.0-7.0); HEMATOCRIT 28.5 % (42.0-52.0); HEMOGLOBIN 9.3 g/dl (14.0-18.0); LYMPHOCYTES # 0.7 10^3/ul (0.8-2.9); MEAN CORPUSCULAR HEMOGLOBIN 33.2 pg (29.0-33.0); MEAN CORPUSCULAR HGB CONC 32.6 g/dl (32.0-37.0); MEAN CORPUSCULAR VOLUME 101.8 fl (82.0-101.0); MEAN PLATELET VOLUME 9.8 fl (7.4-10.4); MONOCYTES % 8.8 % (0.0-11.0); NEUTROPHIL # 18.7 10^3/ul (1.6-7.5); NEUTROPHILS % 84.6 % (39.0-77.0); NUCLEATED RED BLOOD CELLS% 0.1 /100WBC (0.0-0.0); PLATELET COUNT 101 10^3/UL (140-415); POSITIVE DIFF @See below; RED CELL DISTRIBUTION WIDTH 28.2 % (11.5-14.5)
[2017-11-09 05:59] LABS: ALANINE AMINOTRANSFERASE 84 IU/L (13-69); ALBUMIN 2.6 g/dl (3.3-4.9); ALKALINE PHOSPHATASE 179 IU/L (42-121); ANION GAP 11 (8-16); ASPARTATE AMINO TRANSFERASE 96 IU/L (15-46); BILIRUBIN,INDIRECT 8.9 mg/dl (0-1.1); BILIRUBIN,TOTAL 18.4 mg/dl (0.2-1.3); BLOOD UREA NITROGEN 17 mg/dl (7-20); CALCIUM 8.6 mg/dl (8.4-10.2); CARBON DIOXIDE 34 mmol/L (21-31); CHLORIDE 96 mmol/L (97-110); CREATININE 0.69 mg/dl (0.61-1.24); GLUCOSE 167 mg/dl (70-220); POTASSIUM 4.7 mmol/L (3.5-5.1); SODIUM 136 mmol/L (135-144); TOTAL PROTEIN 7.7 g/dl (6.1-8.1)
[2017-11-09] MEDS: LACTULOSE 30ML CUP PO ×4 (06:30→17:08)
[2017-11-09] MEDS: SPIRONOLACTONE 25 MG TAB PO ×2 (06:30→17:08)
[2017-11-09] MEDS: PANTOPRAZOLE 40 MG INJ IV ×2 (06:30→17:08)
[2017-11-09] MEDS: RIFAXIMIN 550 MG TAB PO ×2 (08:42→20:47)
[2017-11-09] MEDS: MULTIVITAMINS THERAPEUTIC TAB PO (08:42)
[2017-11-09] MEDS: METHYLPREDNISOLONE 40 MG INJ IV (08:42)
[2017-11-09] MEDS: FOLIC ACID 1 MG TAB PO (08:42)
[2017-11-09] MEDS: FUROSEMIDE 20 MG TAB PO (08:43)
[2017-11-09] MEDS: THIAMINE 100 MG TAB PO (08:43)
[2017-11-09 13:51] LABS: ANA SCREEN NEGATIVE (NEGATIVE); MITOCHONDRIAL TB NEGATIVE (NEGATIVE); SMOOTH MUSCLE AB SCREEN NEGATIVE (NEGATIVE)
[2017-11-10] MEDS: LACTULOSE 30ML CUP PO ×4 (00:17→21:57)
[2017-11-10 05:21] LABS: ADD MAN DIFF? NO
[2017-11-10 05:27] LABS: ABNORMAL IP MESSAGE 1; BASOPHILS % 0.2 % (0.0-2.0); EOSINOPHILS # 0.2 10^3/ul (0.0-0.5); EOSINOPHILS % 0.9 % (0.0-7.0); HEMATOCRIT 28.2 % (42.0-52.0); HEMOGLOBIN 9.3 g/dl (14.0-18.0); LYMPHOCYTES # 0.7 10^3/ul (0.8-2.9); LYMPHOCYTES % 3.5 % (15.0-51.0); MEAN CORPUSCULAR HEMOGLOBIN 33.8 pg (29.0-33.0); MEAN CORPUSCULAR VOLUME 102.5 fl (82.0-101.0); MONOCYTE # 1.7 10^3/ul (0.3-0.9); MONOCYTES % 8.2 % (0.0-11.0); NEUTROPHIL # 17.4 10^3/ul (1.6-7.5); NEUTROPHILS % 84.9 % (39.0-77.0); PLATELET COUNT 91 10^3/UL (140-415); POSITIVE DIFF @See below; RED BLOOD COUNT 2.75 10^6/ul (4.70-6.10); RED CELL DISTRIBUTION WIDTH 28.3 % (11.5-14.5)
[2017-11-10 05:27] LABS: WHITE BLOOD COUNT 20.4 10^3/ul (4.8-10.8)
[2017-11-10 05:41] LABS: ANION GAP 11 (8-16); BLOOD UREA NITROGEN 17 mg/dl (7-20); CALCIUM 8.6 mg/dl (8.4-10.2); CARBON DIOXIDE 34 mmol/L (21-31); CHLORIDE 96 mmol/L (97-110); CREATININE 0.67 mg/dl (0.61-1.24); GLUCOSE 135 mg/dl (70-220); POTASSIUM 4.6 mmol/L (3.5-5.1); SODIUM 136 mmol/L (135-144)
[2017-11-10] MEDS: SPIRONOLACTONE 25 MG TAB PO ×2 (06:18→17:27)
[2017-11-10] MEDS: PANTOPRAZOLE 40 MG INJ IV ×2 (06:18→17:27)
[2017-11-10] MEDS: RIFAXIMIN 550 MG TAB PO ×2 (08:07→21:57)
[2017-11-10] MEDS: FOLIC ACID 1 MG TAB PO (08:07)
[2017-11-10] MEDS: MULTIVITAMINS THERAPEUTIC TAB PO (08:07)
[2017-11-10] MEDS: FUROSEMIDE 20 MG TAB PO (08:07)
[2017-11-10] MEDS: THIAMINE 100 MG TAB PO (08:07)
[2017-11-10] MEDS: METHYLPREDNISOLONE 40 MG INJ IV (08:11)
[2017-11-11] MEDS: SPIRONOLACTONE 25 MG TAB PO ×2 (05:17→18:12)
[2017-11-11] MEDS: PANTOPRAZOLE 40 MG INJ IV ×2 (05:17→18:12)
[2017-11-11 05:43] LABS: ADD MAN DIFF? NO
[2017-11-11 05:52] LABS: WHITE BLOOD COUNT 20.2 10^3/ul (4.8-10.8)
[2017-11-11 05:52] LABS: ABNORMAL IP MESSAGE 1; BASOPHILS % 0.1 % (0.0-2.0); EOSINOPHILS # 0.2 10^3/ul (0.0-0.5); HEMATOCRIT 27.7 % (42.0-52.0); HEMOGLOBIN 9.2 g/dl (14.0-18.0); LYMPHOCYTES # 0.6 10^3/ul (0.8-2.9); LYMPHOCYTES % 3.2 % (15.0-51.0); MEAN CORPUSCULAR HEMOGLOBIN 33.7 pg (29.0-33.0); MEAN CORPUSCULAR HGB CONC 33.2 g/dl (32.0-37.0); MEAN CORPUSCULAR VOLUME 101.5 fl (82.0-101.0); MEAN PLATELET VOLUME 10.2 fl (7.4-10.4); MONOCYTE # 1.7 10^3/ul (0.3-0.9); MONOCYTES % 8.4 % (0.0-11.0); NEUTROPHIL # 17.1 10^3/ul (1.6-7.5); NEUTROPHILS % 84.7 % (39.0-77.0); NUCLEATED RED BLOOD CELLS% 0.1 /100WBC (0.0-0.0); PLATELET COUNT 90 10^3/UL (140-415); POSITIVE DIFF @See below; RED BLOOD COUNT 2.73 10^6/ul (4.70-6.10); RED CELL DISTRIBUTION WIDTH 28.4 % (11.5-14.5)
[2017-11-11 06:07] LABS: INR 2.62; PROTIME 28.7 Sec (11.9-14.9); PT RATIO 2.2
[2017-11-11 06:36] LABS: ALANINE AMINOTRANSFERASE 82 IU/L (13-69); ALBUMIN 2.7 g/dl (3.3-4.9); ALBUMIN/GLOBULIN RATIO 0.55; ALKALINE PHOSPHATASE 156 IU/L (42-121); ANION GAP 11 (8-16); ASPARTATE AMINO TRANSFERASE 97 IU/L (15-46); BILIRUBIN,INDIRECT 8.1 mg/dl (0-1.1); BILIRUBIN,TOTAL 19.7 mg/dl (0.2-1.3); BLOOD UREA NITROGEN 16 mg/dl (7-20); CALCIUM 8.4 mg/dl (8.4-10.2); CARBON DIOXIDE 32 mmol/L (21-31); CHLORIDE 97 mmol/L (97-110); CREATININE 0.61 mg/dl (0.61-1.24); GLUCOSE 134 mg/dl (70-220); POTASSIUM 4.6 mmol/L (3.5-5.1); SODIUM 135 mmol/L (135-144); TOTAL PROTEIN 7.6 g/dl (6.1-8.1)
[2017-11-11] MEDS: LACTULOSE 30ML CUP PO ×2 (09:07→21:27)
[2017-11-11] MEDS: METHYLPREDNISOLONE 40 MG INJ IV (09:08)
[2017-11-11] MEDS: FOLIC ACID 1 MG TAB PO (09:08)
[2017-11-11] MEDS: MULTIVITAMINS THERAPEUTIC TAB PO (09:09)
[2017-11-11] MEDS: FUROSEMIDE 20 MG TAB PO (09:09)
[2017-11-11] MEDS: THIAMINE 100 MG TAB PO (09:10)
[2017-11-11] MEDS: RIFAXIMIN 550 MG TAB PO ×2 (09:10→21:25)
[2017-11-12] MEDS: PANTOPRAZOLE 40 MG INJ IV ×2 (06:42→18:02)
[2017-11-12] MEDS: SPIRONOLACTONE 25 MG TAB PO ×2 (06:43→18:02)
[2017-11-12] MEDS: THIAMINE 100 MG TAB PO (09:00)
[2017-11-12] MEDS: LACTULOSE 30ML CUP PO ×2 (09:55→22:08)
[2017-11-12] MEDS: METHYLPREDNISOLONE 40 MG INJ IV (09:55)
[2017-11-12] MEDS: FUROSEMIDE 20 MG TAB PO (10:00)
[2017-11-12] MEDS: FOLIC ACID 1 MG TAB PO (10:01)
[2017-11-12] MEDS: RIFAXIMIN 550 MG TAB PO ×2 (10:01→22:07)
[2017-11-12] MEDS: MULTIVITAMINS THERAPEUTIC TAB PO (10:04)
[2017-11-13 05:17] LABS: ADD MAN DIFF? NO
[2017-11-13 05:22] LABS: ABNORMAL IP MESSAGE 1; BASOPHILS % 0.1 % (0.0-2.0); EOSINOPHILS # 0.3 10^3/ul (0.0-0.5); EOSINOPHILS % 1.1 % (0.0-7.0); HEMATOCRIT 29.1 % (42.0-52.0); HEMOGLOBIN 9.6 g/dl (14.0-18.0); LYMPHOCYTES # 0.7 10^3/ul (0.8-2.9); LYMPHOCYTES % 2.8 % (15.0-51.0); MEAN CORPUSCULAR HEMOGLOBIN 33.6 pg (29.0-33.0); MEAN CORPUSCULAR VOLUME 101.7 fl (82.0-101.0); MEAN PLATELET VOLUME 10.3 fl (7.4-10.4); MONOCYTE # 1.7 10^3/ul (0.3-0.9); MONOCYTES % 7.2 % (0.0-11.0); NEUTROPHIL # 20.5 10^3/ul (1.6-7.5); NEUTROPHILS % 86.8 % (39.0-77.0); PLATELET COUNT 75 10^3/UL (140-415); POSITIVE DIFF @See below; RED BLOOD COUNT 2.86 10^6/ul (4.70-6.10); RED CELL DISTRIBUTION WIDTH 28.8 % (11.5-14.5)
[2017-11-13 05:22] LABS: WHITE BLOOD COUNT 23.7 10^3/ul (4.8-10.8)
[2017-11-13 05:30] LABS: MAGNESIUM 1.8 mg/dl (1.7-2.5)
[2017-11-13] MEDS: SPIRONOLACTONE 25 MG TAB PO ×2 (05:31→17:11)
[2017-11-13] MEDS: PANTOPRAZOLE 40 MG INJ IV (05:31)
[2017-11-13 05:47] LABS: ALANINE AMINOTRANSFERASE 90 IU/L (13-69); ALBUMIN 2.7 g/dl (3.3-4.9); ALKALINE PHOSPHATASE 191 IU/L (42-121); ANION GAP 13 (8-16); ASPARTATE AMINO TRANSFERASE 88 IU/L (15-46); BILIRUBIN,INDIRECT 7.8 mg/dl (0-1.1); BILIRUBIN,TOTAL 23.4 mg/dl (0.2-1.3); BLOOD UREA NITROGEN 17 mg/dl (7-20); CALCIUM 8.6 mg/dl (8.4-10.2); CARBON DIOXIDE 30 mmol/L (21-31); CHLORIDE 97 mmol/L (97-110); CREATININE 0.74 mg/dl (0.61-1.24); GLUCOSE 139 mg/dl (70-220); POTASSIUM 4.4 mmol/L (3.5-5.1); SODIUM 136 mmol/L (135-144); TOTAL PROTEIN 8.2 g/dl (6.1-8.1)
[2017-11-13 05:48] LABS: ALBUMIN/GLOBULIN RATIO 0.49
[2017-11-13] MEDS: METHYLPREDNISOLONE 40 MG INJ IV (09:10)
[2017-11-13] MEDS: LACTULOSE 30ML CUP PO ×2 (09:12→20:32)
[2017-11-13] MEDS: MULTIVITAMINS THERAPEUTIC TAB PO (09:13)
[2017-11-13] MEDS: FOLIC ACID 1 MG TAB PO (09:13)
[2017-11-13] MEDS: RIFAXIMIN 550 MG TAB PO ×2 (09:14→20:31)
[2017-11-13] MEDS: THIAMINE 100 MG TAB PO (09:14)
[2017-11-13] MEDS: FUROSEMIDE 20 MG TAB PO (09:14)
[2017-11-13] MEDS: PANTOPRAZOLE (EC) 40 MG TAB PO (17:12)
[2017-11-14 05:21] LABS: ALBUMIN 2.7 g/dl (3.3-4.9); ALKALINE PHOSPHATASE 155 IU/L (42-121); ANION GAP 11 (8-16); ASPARTATE AMINO TRANSFERASE 74 IU/L (15-46); BILIRUBIN,INDIRECT 7.1 mg/dl (0-1.1); BILIRUBIN,TOTAL 23.3 mg/dl (0.2-1.3); BLOOD UREA NITROGEN 19 mg/dl (7-20); CALCIUM 8.8 mg/dl (8.4-10.2); CARBON DIOXIDE 30 mmol/L (21-31); CHLORIDE 99 mmol/L (97-110); CREATININE 0.71 mg/dl (0.61-1.24); GLUCOSE 138 mg/dl (70-220); POTASSIUM 4.7 mmol/L (3.5-5.1); SODIUM 135 mmol/L (135-144); TOTAL PROTEIN 8.1 g/dl (6.1-8.1)
[2017-11-14 05:31] LABS: PHOSPHORUS 4.1 mg/dl (2.5-4.9)
[2017-11-14] MEDS: PANTOPRAZOLE (EC) 40 MG TAB PO ×2 (06:00→18:21)
[2017-11-14] MEDS: SPIRONOLACTONE 25 MG TAB PO ×2 (06:00→18:21)
[2017-11-14 07:24] LABS: ALANINE AMINOTRANSFERASE 85 IU/L (13-69)
[2017-11-14] MEDS: METHYLPREDNISOLONE 40 MG INJ IV (09:06)
[2017-11-14] MEDS: LACTULOSE 30ML CUP PO ×2 (09:07→21:09)
[2017-11-14] MEDS: MULTIVITAMINS THERAPEUTIC TAB PO (09:07)
[2017-11-14] MEDS: FOLIC ACID 1 MG TAB PO (09:07)
[2017-11-14] MEDS: FUROSEMIDE 20 MG TAB PO (09:07)
[2017-11-14] MEDS: RIFAXIMIN 550 MG TAB PO ×2 (09:08→21:09)
[2017-11-14] MEDS: THIAMINE 100 MG TAB PO (09:10)
[2017-11-15] MEDS: PANTOPRAZOLE (EC) 40 MG TAB PO ×2 (06:01→17:15)
[2017-11-15] MEDS: SPIRONOLACTONE 25 MG TAB PO ×2 (06:01→17:14)
[2017-11-15 07:14] LABS: ALBUMIN 2.6 g/dl (3.3-4.9); ALBUMIN/GLOBULIN RATIO 0.53; ALKALINE PHOSPHATASE 159 IU/L (42-121); ANION GAP 13 (8-16); ASPARTATE AMINO TRANSFERASE 71 IU/L (15-46); BILIRUBIN,INDIRECT 6.9 mg/dl (0-1.1); BILIRUBIN,TOTAL 22.6 mg/dl (0.2-1.3); BLOOD UREA NITROGEN 21 mg/dl (7-20); CALCIUM 8.5 mg/dl (8.4-10.2); CARBON DIOXIDE 27 mmol/L (21-31); CHLORIDE 99 mmol/L (97-110); GLUCOSE 131 mg/dl (70-220); POTASSIUM 4.5 mmol/L (3.5-5.1); SODIUM 134 mmol/L (135-144); TOTAL PROTEIN 7.5 g/dl (6.1-8.1)
[2017-11-15 08:03] LABS: ALANINE AMINOTRANSFERASE 79 IU/L (13-69)
[2017-11-15] MEDS: FUROSEMIDE 20 MG TAB PO (08:54)
[2017-11-15] MEDS: FOLIC ACID 1 MG TAB PO (08:54)
[2017-11-15] MEDS: MULTIVITAMINS THERAPEUTIC TAB PO (08:54)
[2017-11-15] MEDS: RIFAXIMIN 550 MG TAB PO ×2 (08:54→20:36)
[2017-11-15] MEDS: THIAMINE 100 MG TAB PO (08:54)
[2017-11-15] MEDS: METHYLPREDNISOLONE 40 MG INJ IV (08:55)
[2017-11-15] MEDS: LACTULOSE 30ML CUP PO ×2 (08:56→20:37)
[2017-11-16] MEDS: SPIRONOLACTONE 25 MG TAB PO ×2 (06:28→17:46)
[2017-11-16] MEDS: PANTOPRAZOLE (EC) 40 MG TAB PO ×2 (06:29→17:46)
[2017-11-16 07:44] LABS: ALANINE AMINOTRANSFERASE 84 IU/L (13-69); ALBUMIN 2.3 g/dl (3.3-4.9); ALBUMIN/GLOBULIN RATIO 0.44; ALKALINE PHOSPHATASE 149 IU/L (42-121); ANION GAP 11 (8-16); ASPARTATE AMINO TRANSFERASE 87 IU/L (15-46); BILIRUBIN,INDIRECT 7.6 mg/dl (0-1.1); BILIRUBIN,TOTAL 22.2 mg/dl (0.2-1.3); BLOOD UREA NITROGEN 20 mg/dl (7-20); CALCIUM 8.6 mg/dl (8.4-10.2); CARBON DIOXIDE 29 mmol/L (21-31); CHLORIDE 98 mmol/L (97-110); CREATININE 0.64 mg/dl (0.61-1.24); GLUCOSE 103 mg/dl (70-220); POTASSIUM 4.3 mmol/L (3.5-5.1); SODIUM 134 mmol/L (135-144); TOTAL PROTEIN 7.5 g/dl (6.1-8.1)
[2017-11-16] MEDS: FOLIC ACID 1 MG TAB PO (08:51)
[2017-11-16] MEDS: MULTIVITAMINS THERAPEUTIC TAB PO (08:51)
[2017-11-16] MEDS: RIFAXIMIN 550 MG TAB PO ×2 (08:51→20:21)
[2017-11-16] MEDS: THIAMINE 100 MG TAB PO (08:51)
[2017-11-16] MEDS: LACTULOSE 30ML CUP PO ×2 (08:51→20:22)
[2017-11-16] MEDS: METHYLPREDNISOLONE 40 MG INJ IV (08:52)
[2017-11-16] MEDS: FUROSEMIDE 20 MG TAB PO (08:53)
[2017-11-17] MEDS: PANTOPRAZOLE (EC) 40 MG TAB PO (06:07)
[2017-11-17] MEDS: SPIRONOLACTONE 25 MG TAB PO (06:07)
[2017-11-17 06:21] LABS: ALANINE AMINOTRANSFERASE 88 IU/L (13-69); ALBUMIN 2.3 g/dl (3.3-4.9); ALBUMIN/GLOBULIN RATIO 0.43; ALKALINE PHOSPHATASE 148 IU/L (42-121); ANION GAP 11 (8-16); ASPARTATE AMINO TRANSFERASE 79 IU/L (15-46); BILIRUBIN,INDIRECT 7.2 mg/dl (0-1.1); BLOOD UREA NITROGEN 21 mg/dl (7-20); CALCIUM 8.7 mg/dl (8.4-10.2); CARBON DIOXIDE 30 mmol/L (21-31); CHLORIDE 99 mmol/L (97-110); CREATININE 0.66 mg/dl (0.61-1.24); GLUCOSE 133 mg/dl (70-220); POTASSIUM 4.7 mmol/L (3.5-5.1); SODIUM 135 mmol/L (135-144); TOTAL PROTEIN 7.6 g/dl (6.1-8.1)
[2017-11-17 06:35] LABS: PHOSPHORUS 3.7 mg/dl (2.5-4.9)
[2017-11-17] MEDS: MULTIVITAMINS THERAPEUTIC TAB PO (09:08)
[2017-11-17] MEDS: LACTULOSE 30ML CUP PO (09:08)
[2017-11-17] MEDS: FOLIC ACID 1 MG TAB PO (09:08)
[2017-11-17] MEDS: FUROSEMIDE 20 MG TAB PO (09:09)
[2017-11-17] MEDS: THIAMINE 100 MG TAB PO (09:09)
[2017-11-17] MEDS: METHYLPREDNISOLONE 40 MG INJ IV (09:09)
[2017-11-17] MEDS: RIFAXIMIN 550 MG TAB PO (09:09)
== END 2017-11-17 11:30 | disposition home or self-care (01) | DRG 432 ==
LOC: E/R 14:40 → PP2 11-10 20:22 → 6WM 16:50
PROVIDERS: Internal Medicine
PROC: 06L38ZZ Occlusion of Esophageal Vein, Via Natural or Artificial Opening Endoscopic (ICD-10-PCS; principal; 2017-10-27 16:45)
PROC: 6A551Z2 Pheresis of Platelets, Multiple (ICD-10-PCS; 2017-10-27 16:45)
PROC: 30233K1 Transfusion of Nonautologous Frozen Plasma into Peripheral Vein, Percutaneous Approach (ICD-10-PCS; 2017-10-27 16:45)
PROC: 30233N1 Transfusion of Nonautologous Red Blood Cells into Peripheral Vein, Percutaneous Approach (ICD-10-PCS; 2017-10-27 16:45)
DX: K70.31 Alcoholic cirrhosis of liver with ascites (principal); G93.40 Encephalopathy, unspecified; K76.6 Portal hypertension; F10.239 Alcohol dependence with withdrawal, unspecified; I85.10 Secondary esophageal varices without bleeding; D69.6 Thrombocytopenia, unspecified; D64.9 Anemia, unspecified; K74.60 Unspecified cirrhosis of liver; Z87.891 Personal history of nicotine dependence; D50.9 Iron deficiency anemia, unspecified; R74.0 Nonspecific elevation of levels of transaminase and lactic acid dehydrogenase [LDH]; K31.89 Other diseases of stomach and duodenum; R60.9 Edema, unspecified; Z59.0 Homelessness; S30.1XXA Contusion of abdominal wall, initial encounter; X58.XXXA Exposure to other specified factors, initial encounter
CPT/HCPCS: 36415; 36430; 36600; 71260; 71275; 74177; 74183; 80048; 80053; 80076; 80307; 82105; 82140; 82270; 82803; 83605; 83735; 84100; 84484; 85014; 85018; 85025; 85610; 85730; 86038; 86255; 86376; 86644; 86704; 86709; 86803; 86850; 86900; 86901; 86920; 86945; 87040; 87340; 93005; 96374; 97110; 97116; 97162; 97530; 99291-25